=== PATIENT | female | born 1960 | race Caucasian/White ===

== ENCOUNTER → 2016-06-13 | Outpatient (CLI) | payer OTHER ==
[2016-06-13 14:00] LABS: HEMATOCRIT 36.3 % (37-47)
[2016-06-13 14:26] LABS: BLOOD UREA NITROGEN 13 mg/dl (7-18); CALCIUM 9.8 mg/dl (8.5-10.1); CARBON DIOXIDE 26 mmol/L (21-32); CHLORIDE 106 mmol/L (98-107); GLUCOSE 106 mg/dl (70-99); POTASSIUM 4.6 mmol/L (3.5-5.1); SODIUM 141 mmol/L (136-145)
== END | disposition home or self-care (01) ==
LOC: C.LABMFLN 10:04
PROVIDERS: ATTEND Family Medicine
DX: E11.9 Type 2 diabetes mellitus without complications (principal); N28.89 Other specified disorders of kidney and ureter; E55.9 Vitamin D deficiency, unspecified

== ENCOUNTER → 2016-09-01 | Outpatient (CLI) | payer OTHER ==
[2016-09-01 14:07] LABS: BLOOD UREA NITROGEN 10 mg/dl (7-18); BUN/CREATININE RATIO 8.9 (10-20); CALCIUM 9.4 mg/dl (8.5-10.1); CARBON DIOXIDE 29 mmol/L (21-32); CHLORIDE 108 mmol/L (98-107); GLUCOSE 98 mg/dl (70-99); POTASSIUM 4.4 mmol/L (3.5-5.1); SODIUM 143 mmol/L (136-145)
[2016-09-01 14:09] LABS: ESTIMATED AVERAGE GLUCOSE 126 mg/dl; HA1C FLAG Normal (Normal)
== END | disposition home or self-care (01) ==
LOC: C.LABMFLN 08:57
PROVIDERS: ATTEND Family Medicine
DX: E11.9 Type 2 diabetes mellitus without complications (principal); N30.00 Acute cystitis without hematuria

== ENCOUNTER → 2016-10-17 | Outpatient (CLI) | payer OTHER ==
[2016-10-17 14:34] LABS: BLOOD UREA NITROGEN 15 mg/dl (7-18); GLUCOSE 99 mg/dl (70-99)
[2016-10-17 14:35] LABS: BUN/CREATININE RATIO 12.2 (10-20); CALCIUM 9.2 mg/dl (8.5-10.1); CARBON DIOXIDE 26 mmol/L (21-32); CHLORIDE 108 mmol/L (98-107); POTASSIUM 4.2 mmol/L (3.5-5.1); SODIUM 143 mmol/L (136-145)
== END | disposition home or self-care (01) ==
LOC: C.LABMFLN 12:14
PROVIDERS: ATTEND Family Medicine
DX: I12.9 Hypertensive chronic kidney disease with stage 1 through stage 4 chronic kidney disease, or unspecified chronic kidney disease (principal); N18.3 Chronic kidney disease, stage 3 (moderate)

== ENCOUNTER → 2016-12-01 | Outpatient (CLI) | payer OTHER ==
[2016-12-01 13:12] LABS: URINE APPEARANCE CLEAR (CLEAR); URINE BILIRUBIN NEG (NEG); URINE COLOR YELLOW; URINE NITRITE NEG (NEG); URINE PH 6.5 (4.5-7.5); UROBILINOGEN NEG (NEG)
[2016-12-01 13:28] LABS: MANUAL MICROSCOPIC REQUIRED? NO; REVIEW REQ? NO
[2016-12-01 14:01] LABS: ALT/SGPT 31 U/L (12-78); AST/SGOT 27 U/L (15-37); BLOOD UREA NITROGEN 9 mg/dl (7-18); BUN/CREATININE RATIO 8.5 (10-20); CALCIUM 9.8 mg/dl (8.5-10.1); CARBON DIOXIDE 28 mmol/L (21-32); CHLORIDE 108 mmol/L (98-107); GLUCOSE 83 mg/dl (70-99); POTASSIUM 4.3 mmol/L (3.5-5.1); SODIUM 141 mmol/L (136-145)
[2016-12-01 14:11] LABS: ALKALINE PHOSPHATASE 122 U/L (45-117); THYROID STIMULATING HORMONE 0.994 uIu/ml (0.300-4.500)
== END | disposition home or self-care (01) ==
LOC: C.LABMFLN 10:47
PROVIDERS: ATTEND Family Medicine
DX: R60.0 Localized edema (principal); E55.9 Vitamin D deficiency, unspecified

== ENCOUNTER → 2017-05-20 | Outpatient (CLI) | payer OTHER ==
--- NOTE | 2017-05-20 13:17 | DIAGNOSTIC IMAGING REPORT ---
R FOOT MIN 3 VIEWS ROUTINE CLINICAL HISTORY: Right foot pain COMPARISON: None. DISCUSSION: No fractures or dislocations are visualized. There are no erosive or destructive changes. There are minimal degenerative changes the level the first metatarsal phalangeal joint. IMPRESSION: Minor degenerative change. No fractures, subluxations, or destructive lesions are visualized Electronically signed by: Aba Bee M.D. 05/20/2017 1:16 PM Dictated Date/Time: 05/20/2017 1:15 PM
--- NOTE | 2017-05-20 13:21 | DIAGNOSTIC IMAGING REPORT ---
R ANKLE MIN 3 VIEWS ROUTINE HISTORY: 57 years-old Female PAIN acute right ankle pain COMPARISON: Right foot radiographs and right foot MRI of same day TECHNIQUE: 4 views of the right ankle FINDINGS: Mild marginal spurring of the medial and lateral malleoli. Bones appear mildly demineralized. There is no acute fracture, dislocation or osteochondral defect identified. Small plantar enthesophyte about the calcaneus. No opaque foreign body identified. Mild cortical thickening of the distal fibular metadiaphysis may reflect remote fracture. IMPRESSION: 1. Mild degenerative changes without acute bony abnormality. 2. Mild cortical thickening of the distal fibular metadiaphysis may reflect remote healed fracture. The above report was generated using voice recognition software. It may contain grammatical, syntax or spelling errors. Electronically signed by: Wero Carlos M.D. 05/20/2017 1:20 PM Dictated Date/Time: 05/20/2017 1:18 PM
--- NOTE | 2017-05-20 14:53 | DIAGNOSTIC IMAGING REPORT ---
R LOWER EXT JOINT WITHOUT CLINICAL HISTORY: 57 years-old Female with RIGHT HIND FOOT, STJ. Acute pain of the right hindfoot, most pronounced laterally. No reported trauma or prior right foot surgery. COMPARISON: Right foot and ankle radiographs of same day TECHNIQUE: Multiplanar, multi sequence MRI of the right ankle was performed without contrast. FINDINGS: The axial sequences are mildly motion degraded. LATERAL LIGAMENT COMPLEX: There is thickening with intermediate T2 signal of the anterior talofibular ligament compatible with chronic sprain. The calcaneofibular ligament is also thickened suggesting chronic sprain however is intact. The posterior talofibular ligament is intact. SYNDESMOTIC LIGAMENTS: The anterior-inferior tibiofibular ligament, interosseous membrane and posterior-inferior tibiofibular ligaments are intact. DELTOID LIGAMENT COMPLEX: The superficial and deep components of the deltoid ligament are intact. ANTERIOR TENDONS: The tibialis anterior, extensor hallucis longus and extensor digitorum longus tendons are normal in position, morphology and signal. LATERAL TENDONS: The peroneus longus and brevis tendons are intact. Mild thickening of the peroneus brevis tendon suggests tendinosis. There is a small tendon noted posterior to the peroneus longus and brevis tendons nicely seen on image 12 of series 8 and 9 suggesting accessory muscle and tendon which appears to insert onto the retrocochlear eminence of the calcaneus. MEDIAL TENDONS: Mild tenosynovitis of the tibialis posterior tendon. The flexor digitorum longus and flexor hallucis longus tendons are intact. PLANTAR FASCIA: The medial and lateral bundles of the plantar fascia are normal in morphology and signal. There is no evidence of acute plantar fasciitis or tear. No evidence of plantar fascial nodules. Small calcaneal spur at the plantar insertion site. ACHILLES TENDON: The Achilles tendon is mildly thickened within the midportion of the tendon with some intermediate T2 signal suggesting mild tendinosis. No tendon tear or associated bursitis identified. SINUS TARSI: There is normal fat signal within the sinus tarsi. The interosseous and cervical ligaments are normal. The navicular-calcaneal (spring) ligament is without acute abnormality. TARSAL TUNNEL: There are no obstructing lesions within the tarsal tunnel. BONE MARROW: 6 mm T2 hyperintense circumscribed structure of the calcaneus just deep to the angle of [place] as seen on image 7 series 5 suggests subcortical cyst or intraosseous ganglion. No significant degenerative changes involving the subtalar joint. There is mild cortical thickening involving the distal fibular metadiaphysis nicely seen on image 23 series 6. No acute fracture. IMPRESSION: 1. Mild tendinosis of the peroneus brevis without definite tendon tear identified. 2. Accessory muscle and tendon posterior to the peroneus longus and brevis tendons inserting onto the retrotrochlear eminence of the calcaneus is compatible with accessory peroneus quartus. 3. Mild tibialis posterior tenosynovitis. 4. Mild Achilles tendinosis. 5. Healed chronic fracture of the distal fibular metadiaphysis. The above report was generated using voice recognition software. It may contain grammatical, syntax or spelling errors. Electronically signed by: Wero Carlos M.D. 05/20/2017 2:52 PM Dictated Date/Time: 05/20/2017 1:23 PM
== END | disposition home or self-care (01) ==
LOC: C.MRIBC 12:07
PROVIDERS: ATTEND Podiatrist Foot & Ankle Surgery
DX: M76.71 Peroneal tendinitis, right leg (principal)